=== PATIENT | female | born 1950 | race Caucasian/White ===

== ENCOUNTER 2018-09-09 06:29 | Day surgery (SDC) | payer OTHER ==
[2018-09-09] MEDS ORDERED: DIAZEPAM 5 MG TAB PO ONE (06:31)
[2018-09-09] MEDS ORDERED: diphenhydrAMINE 25 MG CAP PO ONE (06:31)
[2018-09-09] MEDS ORDERED: FAMOTIDINE 20 MG TAB PO ONE (06:31)
[2018-09-09] MEDS ORDERED: NS 1,000 ML IV ONE (06:31)
[2018-09-09] MEDS ORDERED: ASPIRIN EC 325 MG TAB PO ONE (06:31)
[2018-09-09 07:14] LABS: PLATELET COUNT 316 10^3/uL (150-400)
[2018-09-09 07:21] LABS: INR 0.91 (0.83-1.16); PROTIME(PATIENT) 12.5 SEC (12.0-15.0)
[2018-09-09] MEDS ORDERED: VERAPAMIL 5 MG/2 ML VIAL ONE (07:42)
[2018-09-09] MEDS ORDERED: fentaNYL 100 MCG/2 ML INJ ONE (07:42)
[2018-09-09] MEDS ORDERED: LIDOCAINE 1% 300 MG/30 ML SDV ONE (07:42)
[2018-09-09] MEDS ORDERED: HEPARIN 10,000 UNIT/10 ML MDV (1,000 UNIT/ML) ONE (07:42)
[2018-09-09] MEDS ORDERED: MIDAZOLAM 2 MG/2 ML VIAL ONE (07:42)
[2018-09-09] MEDS ORDERED: IOPAMIDOL (ISOVUE-370) 150 ML BTL IV ONE (07:43)
--- NOTE | 2018-09-09 08:31 | PDPROPOC ---
Sedation Plan of Care Sedation Plan of Care: vital signs stable, mental status noted, patient educated of risks, benefits, alternatives, patient can tolerate sedation ASA Classification: ASA 2 Planned drugs: fentanyl, midazolam Mallampati Score: Class 1 Mallampati Reference Image: Patient passed 3-3-2 rule?: Yes
--- NOTE | 2018-09-09 08:32 | PDHPUP ---
History & Physical Update H&P update statement: This history and physical update is based on an assessment of the patient which was completed after admission or registration (within 24 hours), but prior to the surgery/procedure. H&P update: H&P reviewed & patient examined, no change in patient's condition since H&P completed
[2018-09-09] MEDS ORDERED: OXYCODONE/APAP 5/325 TAB PO PRN (09:13)
[2018-09-09] MEDS ORDERED: NITROGLYCERIN 0.4 MG BTL SL PRN (09:13)
[2018-09-09] MEDS ORDERED: ONDANSETRON 4 MG/2 ML VIAL IVP PRN (09:13)
[2018-09-09] MEDS ORDERED: HYDROCODONE/APAP 5/325 TAB PO PRN (09:13)
[2018-09-09] MEDS ORDERED: ATROPINE SULFATE 1 MG/10 ML SYR IVP PRN (09:13)
--- NOTE | 2018-09-09 09:17 | PDDXCAT ---
Diagnostic Cath Note - . Date: 09/09/18 Incinerator Attendant: Ankur Indication: other (High Risk calcium score with left main invovlment. Pre-op lumbar surgery.) - Procedure Access: right wrist Procedure: left heart catheterization, coronary angiography, left ventriculogram - Materials Left Heart Cath size: 5F Left Heart Cath materials: JL3.5, JR4.0, pigtail - Findings-Left Heart Catheterization LM: unobstructed LAD: unobstructed with luminal irregularities. LCX: unobstructed with luminal irregularities. RCA: dominant: Luminal irregularities. EDP: 18 mmhg LVEF: 70 Wall motion: normal Complications: none Estimated blood loss: <50ml Closure method: TR Band Assessment: No contraindications to non-cardiac surgery. Mild non-obstructice coronary artery disease. Normal LV filling pressures and function.
== END 2018-09-09 12:32 | disposition home or self-care (01) ==
LOC: FCATH 06:29
PROVIDERS: ATTEND Internal Medicine Interventional Cardiology
DX: Z01.810 Encounter for preprocedural cardiovascular examination (principal); R94.39 Abnormal result of other cardiovascular function study; R93.1 Abnormal findings on diagnostic imaging of heart and coronary circulation; M06.9 Rheumatoid arthritis, unspecified; I10 Essential (primary) hypertension; E11.9 Type 2 diabetes mellitus without complications; Z79.4 Long term (current) use of insulin; Z82.49 Family history of ischemic heart disease and other diseases of the circulatory system
CPT/HCPCS: C1769; J1644; J2250; J3010; Q9967